=== PATIENT | female | born 1960 ===

== ENCOUNTER 2017-03-10 12:16 | Observation (INO) | payer OTHER, SELFPAY ==
[2017-03-10 12:16] VITALS: BMI 25.7
--- NOTE | 2017-03-10 12:49 | ED PDOC ---
HPI: Chest Pain Time Seen by Provider: 03/10/17 12:47 Chief Complaint (Nursing): Chest Pain Chief Complaint (Provider): CHEST PAIN History Per: Patient (57 YO FEMALE HERE WITH LEFT SIDED CHEST PAIN X 1 WEEK CONTINUOUS DESCRIBED IF INSECT WAS CRAWLING IN THIS LOCATION. DENIES ANY PLEURITIC COMPONENT. DENIES ANY WORSENING WITH POSITION. NO RADIATION TO UPPER EXTREMITIES/FACE. ATTEMPTED USE OF NAPROXEN YESTERDAY WITHOUT RELIEF. DENIES ANY FAMILY H/O [place]/STROKE. DENIES ANY PERSONAL HISTORY OF CAD/HTN/DM/HLD. IS [employer] X 3 YEARS. SOCIAL SMOKER/DRINKER.) Past Medical History Reviewed: Historical Data, Nursing Documentation, Vital Signs Vital Signs: Last Vital Signs Temp 98.0 F 03/10/17 12:24 Pulse 69 03/10/17 12:50 Resp 20 03/10/17 12:24 BP 118/71 03/10/17 12:50 Pulse Ox 98 03/10/17 12:50 - Medical History PMH: Denies: HIV, Chronic Kidney Disease - Family History Family History: States: No Known Family Hx - Home Medications Home Medications: Ambulatory Orders Medication Instructions Recorded Naproxen 375 mg PO Q8 PRN #21 tab 09/03/15 diaZEpam [Valium] 5 mg PO Q6 PRN #14 tab 09/03/15 - Allergies Allergies/Adverse Reactions: Allergies Allergy/AdvReac Type Severity Reaction Status Date / Time No Known Allergies Allergy Verified 09/28/14 12:01 Review of Systems ROS Statement: Except As Marked, All Systems Reviewed And Found Negative Physical Exam - Reviewed Nursing Documentation Reviewed: Yes Vital Signs Reviewed: Yes - Physical Exam Appears: Positive for: Well, Non-toxic, No Acute Distress Head Exam: Positive for: ATRAUMATIC, NORMAL INSPECTION, NORMOCEPHALIC Skin: Positive for: Normal Color, Warm, DRY Eye Exam: Positive for: EOMI, Normal appearance, PERRL ENT: Positive for: Normal ENT Inspection Neck: Positive for: Normal, Painless ROM Cardiovascular/Chest: Positive for: Regular Rate, Rhythm. Negative for: Chest Non Tender (LEFT SIDE OF CHEST WALL MILD TENDERNESS NOTED.) Respiratory: Positive for: CNT, Normal Breath Sounds Gastrointestinal/Abdominal: Positive for: Normal Exam, Bowel Sounds, Soft Back: Positive for: Normal Inspection Extremity: Positive for: Normal ROM Neurologic/Psych: Positive for: Alert, Oriented - Laboratory Results Result Diagrams: 03/10/17 12:55 03/10/17 12:55 - ECG ECG Rhythm: Positive for: Sinus Rhythm (NSR 79 BPM; NO ECTOPY ;NO ACUTE CHANGES) O2 Sat by Pulse Oximetry: 98 - Progress ED Course And Treament: cxr: neg toradol 15 mg IM Re-evaluated. Patient noted persistent symptoms d/w Dr. Anne. Will admit obs for chest pain evaluation Disposition - Clinical Impression Clinical Impression: Chest pain - Patient ED Disposition Is Patient to be Admitted: Yes - Disposition Disposition Time: 14:38 Condition: FAIR Forms: [facility] (Turkish)
[2017-03-10 13:03] LABS: BASO % 0.7 % (0.0-2.0); EOS # 0.2 K/uL (0.0-0.7); EOS % 3.4 % (0.0-4.0); HEMATOCRIT 37.8 % (34.0-47.0); LYMPH # 2.6 K/uL (1.0-4.3); MEAN CELL VOLUME 91.5 fl (81.0-99.0); MEAN CORPUSCULAR HGB CONC 32.8 g/dL (33.0-37.0); MEAN PLATELET VOLUME 8.4 fl (7.2-11.7); MONO # 0.6 K/uL (0.0-0.8); MONO % 7.6 % (0.0-10.0); NEUT # 3.8 K/uL (1.8-7.0); NEUT % 52.3 % (50.0-75.0); NRBC % 0.1 % (0.0-0.0); RED CELL DISTRIBUTION WIDTH 13.4 % (11.5-14.5); WHITE BLOOD COUNT 7.3 K/uL (4.8-10.8)
[2017-03-10 13:16] LABS: BLOOD UREA NITROGEN 18 mg/dl (7-17); CALCIUM 9.4 mg/dL (8.4-10.2); CARBON DIOXIDE 23 mmol/L (22-30); CHLORIDE 111 mmol/L (98-107); GFR AFRICAN-AMERICAN > 60; GLUCOSE,RANDOM 101 mg/dL (65-105); POTASSIUM 3.8 MMOL/L (3.6-5.0); SODIUM 143 mmol/l (132-148)
[2017-03-10 13:50] LABS: MAGNESIUM 1.9 MG/DL (1.6-2.3)
[2017-03-10 15:18] VITALS: BP 118/76; PULSE 63; RESP 18; TEMP 98.3; O2SAT 99
--- NOTE | 2017-03-10 15:44 | CP.PCM.PCO ---
Assessment & Plan - Assessment and Plan (Free Text) Assessment: 57 yo female with no past medical history presented to ED for evaluation of chest pain. Patient states chest pain x 1 week, constant, left sided, 3/10 in severity with tingling sensation. Patient goes to gym and does cardio 2-3x/wk and does not wear a supportive bra. Patient has no history of HTN, HL, DM, obesity, positive family history (parent or sibling with CVD before age 65); atherosclerotic disease: prior TX, PCI/CABG, CVA/TIA, or peripheral arterial disease. Patient smokes 1 cigarette occasionally. EKG/Troponin/CXR completed in ED, unremarkable. Patient states she feels well at this time. No new or worsening symptoms that brought patient to ED. Vitals stable. PE remarkable for reproducible pain of left parasternal area, CV exam unremarkable RRR, no m/r/g. Patient seen and evaluated with attending at bedside. HEART SCORE calculated to be 2. Patient to be discharged home with NSAID therapy BID x 1 week and close follow up with clinic this week. ED precautions discussed including new/ worsening symptoms.
--- NOTE | 2017-03-10 17:52 | RAD ---
HISTORY: CP COMPARISON: No prior. FINDINGS: LUNGS: No definite acute infiltrate is identified. PLEURA: No significant pleural effusion identified, no pneumothorax apparent. CARDIOVASCULAR: Technical magnification is likely given frontal portable technique though mild cardiomegaly is not completely excluded. No pulmonary derangement. OSSEOUS STRUCTURES: No significant abnormalities. VISUALIZED UPPER ABDOMEN: Normal. OTHER FINDINGS: None. IMPRESSION: No acute infiltrate or pleural effusion identified. No pneumothorax. Technical cardiac magnification is favored over intrinsic cardiomegaly. Clinically correlate.
== END 2017-03-10 16:34 | disposition home or self-care (01) ==
LOC: H.ER 12:16 → H.ERHOLD 14:41
PROVIDERS: ADMIT Family Medicine Geriatric Medicine; ATTEND Family Medicine Geriatric Medicine
DX: R07.9 Chest pain, unspecified (principal); F17.210 Nicotine dependence, cigarettes, uncomplicated; Z82.49 Family history of ischemic heart disease and other diseases of the circulatory system
CPT/HCPCS: 71010; 80048; 83735; 84484; 85025; 85378; 96372; 99284; G0378; J1885

== ENCOUNTER 2018-05-21 13:26 | Emergency (ER) | payer OTHER ==
[2018-05-21 13:26] VITALS: BMI 25.7
[2018-05-21 13:51] VITALS: RESP 18; TEMP 98.8; O2SAT 99
[2018-05-21 14:39] VITALS: BP 128/73; PULSE 85
--- NOTE | 2018-05-21 14:39 | ED PDOC ---
HPI: Chest Pain History Per: Patient Additional Complaint(s): Patient seen and examined at bedside with attending. 58F no PMH/PSH p/w intermittent palpitations associated with feelings of anxiety shortly after. Palpitations started Friday and have continued daily since then approximately 3x/day and last for "maybe a minute". She denies any associated dizziness/headache, SOB, nausea, diaphoresis and feels the "pulsing in the center of her chest". She endorses drinking 10 cups of coffee/day, drinks alcohol 3-4x/week with her last drink being a glass of wine on Friday. She has never experienced these symptoms before and went through menopause 2 years ago. She denies any symptoms of temperature intolerance, diarrhea/constipation. PMH: None PSH: None FHx: Denies cardiac hx ALL: NKDA Alcohol: 3-4x/week Smoking: Occasionally 1-2 cigarettes Drugs: denies <Magi Preciado - Last Filed: 05/21/18 16:23> <Nan Sterling - Last Filed: 05/21/18 16:44> Time Seen by Provider: 05/21/18 14:20 Chief Complaint (Nursing): Palpitations Supervising Attending Note - Supervising Attending Note The Documented history was done by the: Physician Defense Attorney The documented physical exam was done by the: Physician Defense Attorney The documented procedures were done by the: Physician Defense Attorney - Attestation: I have personally seen and examined this patient.: Yes I have fully participated in the care of the patient.: Yes I have reviewed all pertinent clinical information: Yes - Notes: Notes:: Discussed case and reviewed chart. Spoke to pt with burn center nurse# [id number]. Pt with normal workup. Pt to followup with PMD in one week. Agree with resident workup and assessment. <Nan Sterling - Last Filed: 05/21/18 16:44> Past Medical History Vital Signs: Last Vital Signs Temp 37.1 C 05/21/18 13:49 Pulse 93 H 05/21/18 13:49 Resp 18 05/21/18 13:49 BP 120/75 05/21/18 13:49 Pulse Ox 99 05/21/18 13:49 - Medical History PMH: Denies: HIV, Chronic Kidney Disease - Family History Family History: States: No Known Family Hx <Magi Preciado Last Filed: 05/21/18 16:23> Vital Signs: Last Vital Signs Temp 98.8 F 05/21/18 13:49 Pulse 85 05/21/18 14:20 Resp 18 05/21/18 13:49 BP 128/73 05/21/18 14:20 Pulse Ox 99 05/21/18 16:24 <Nan Sterling - Last Filed: 05/21/18 16:44> - Home Medications Home Medications: Ambulatory Orders Medication Instructions Recorded Calcium Carbonate [Caltrate] 1 tab PO DAILY 03/10/17 - Allergies Allergies/Adverse Reactions: Allergies Allergy/AdvReac Type Severity Reaction Status Date / Time No Known Allergies Allergy Verified 05/21/18 13:49 Review of Systems ROS Statement: Except As Marked, All Systems Reviewed And Found Negative Cardiovascular: Positive for: Palpitations Psych: Positive for: Anxiety (with the palpitations) <Magi Preciado - Last Filed: 05/21/18 16:23> Physical Exam - Reviewed Vital Signs Reviewed: Yes - Physical Exam Appears: Positive for: Well, Non-toxic, No Acute Distress Head Exam: Positive for: ATRAUMATIC, NORMAL INSPECTION Skin: Positive for: Normal Color, Warm, Dry Eye Exam: Positive for: Normal appearance, EOMI Neck: Positive for: Supple Cardiovascular/Chest: Positive for: Regular Rate, Rhythm Respiratory: Positive for: Normal Breath Sounds. Negative for: Crackles, Rales, Rhonchi, Wheezing Gastrointestinal/Abdominal: Positive for: Bowel Sounds, Soft. Negative for: Tenderness Neurologic/Psych: Positive for: Alert, Oriented <MilanvestaMagi - Last Filed: 05/21/18 16:23> - Laboratory Results Result Diagrams: 05/21/18 14:50 05/21/18 14:50 - ECG O2 Sat by Pulse Oximetry: 99 - Radiology X-Ray: Read By Radiologist (CXR w/o active pulmonary disease.) <MilanvestaMagi - Last Filed: 05/21/18 16:23> - Laboratory Results Result Diagrams: 05/21/18 14:50 05/21/18 14:50 <Nan Sterling - Last Filed: 05/21/18 16:44> Medical Decision Making Medical Decision Making: Rule acute cardiac findings vs. thyroid vs. excessive caffeine ingestion - EKG - CXR PA/Lat - CBC, CMP, Troponin, TSH 1520 - CMP WNL (BUN-21) - Troponin Neg - TSH WNL - CBC WNL 1600 - d/c home with ER precautions - [facility] for referral for further cardio w/u - Counseled on decreasing caffeine intake <Magi Preciado - Last Filed: 05/21/18 16:23> Disposition - Disposition Disposition Time: 16:24 <Magi Preciado - Last Filed: 05/21/18 16:23> <Nan Sterling - Last Filed: 05/21/18 16:44> - Clinical Impression Clinical Impression: Intermittent palpitations - Disposition Condition: IMPROVED Additional Instructions: Follow up with primary medical doctor in one to two weeks for further follow up and assessment of palpitations. Return to the emergency department if symptoms worsen or if new symptoms develop. Instructions: Palpitations (DC) Forms: [facility] (Luxembourger), [facility] (East Timorese) Print Language: MALAY
[2018-05-21 15:13] LABS: ALB/GLOB RATIO 1.2 (1.0-2.1); ALBUMIN 4.2 g/dL (3.5-5.0); ALT/SGPT 32 U/L (9-52); AST/SGOT 33 U/L (14-36); BLOOD UREA NITROGEN 21 mg/dl (7-17); CALCIUM 9.7 mg/dL (8.4-10.2); GFR NON-AFRICAN AMERICAN > 60
--- NOTE | 2018-05-21 15:28 | RAD ---
HISTORY: Palpitations COMPARISON: 03/10/2017 TECHNIQUE: Chest PA and lateral FINDINGS: LINES AND TUBES: None. LUNG AND PLEURA: The lungs are well inflated and clear. No pleural effusion or pneumothorax. HEART AND MEDIASTINUM: The heart is not enlarged. No aortic atherosclerotic calcification present. The hilar and mediastinal contours are within normal limits. SKELETAL STRUCTURES: The bony structures are within normal limits for the patient's age. VISUALIZED UPPER ABDOMEN: Normal. OTHER FINDINGS: None. IMPRESSION: No active pulmonary disease.
[2018-05-21 15:47] LABS: HEMOGLOBIN 12.8 g/dL (12.0-16.0); MEAN CELL VOLUME 93.1 fl (81.0-99.0); MEAN CORPUSCULAR HEMOGLOBIN 30.2 pg (27.0-31.0); MEAN CORPUSCULAR HGB CONC 32.5 g/dL (33.0-37.0); RBC 4.24 Mil/uL (3.80-5.20); RED CELL DISTRIBUTION WIDTH 13.2 % (11.5-14.5); WHITE BLOOD COUNT 8.9 K/uL (4.8-10.8)
== END 2018-05-21 16:40 | disposition home or self-care (01) ==
LOC: H.ER 13:26
DX: R00.2 Palpitations (principal); F41.9 Anxiety disorder, unspecified

== ENCOUNTER 2018-09-21 10:00 | Emergency (ER) | payer OTHER ==
[2018-09-21 10:00] VITALS: BMI 25.7
[2018-09-21 10:11] VITALS: O2SAT 98
--- NOTE | 2018-09-21 10:37 | ED PDOC ---
Lower Extremity Pain/Injury Time Seen by Provider: 09/21/18 10:04 Chief Complaint (Nursing): Lower Extremity Problem/Injury Chief Complaint (Provider): Lower Extremity Problem/Injury History Per: Patient History/Exam Limitations: no limitations Onset/Duration Of Symptoms: Days (x10) Current Symptoms Are (Timing): Still Present Additional Complaint(s): 58 year old female presents to the emergency department with a complaint of left knee radiating to posterior thigh pain status post slip and fall with extension of the knee 10 days ago. Patient has been able to ambulate on the left lower extremity with pain with bruising to affected area. He denies chest pain or shortness of breath. PCP: none provided Past Medical History Reviewed: Historical Data, Nursing Documentation, Vital Signs Vital Signs: Last Vital Signs Temp 98.2 F 09/21/18 10:10 Pulse 87 09/21/18 10:10 Resp 17 09/21/18 10:10 BP 139/81 09/21/18 10:10 Pulse Ox 98 09/21/18 10:10 - Medical History PMH: Denies: HIV, Chronic Kidney Disease - Family History Family History: States: Unknown Family Hx - Home Medications Home Medications: Ambulatory Orders Medication Instructions Recorded Calcium Carbonate [Caltrate] 1 tab PO DAILY 03/10/17 Naproxen [Naprosyn] 500 mg PO Q12H #20 tab 09/21/18 - Allergies Allergies/Adverse Reactions: Allergies Allergy/AdvReac Type Severity Reaction Status Date / Time No Known Allergies Allergy Verified 05/21/18 13:49 Review of Systems ROS Statement: Except As Marked, All Systems Reviewed And Found Negative Musculoskeletal: Positive for: Leg Pain (left knee to posterior thigh), Other (ecchymosis left lateral and medial aspect of posterior thigh) Physical Exam - Reviewed Nursing Documentation Reviewed: Yes Vital Signs Reviewed: Yes - Physical Exam Appears: Positive for: No Acute Distress Extremity: Positive for: Other (medial and lateral aspect of left knee with ecchymosis extending to medial and lateral posterior thigh). Negative for: Calf Tenderness (left-sided) Neurologic/Psych: Negative for: Motor/Sensory Deficits (left knee) - ECG O2 Sat by Pulse Oximetry: 98 (RA) Pulse Ox Interpretation: Normal Medical Decision Making Medical Decision Making: Time: 1025 Initial Plan: 58 year old female with injury, most likely, representing tendon or meniscus injury. Unlikely DVT. Will order XR left knee then consider MRI. Time: 1046 --MRI left knee for further evaluation of ligamentos injury noted on preliminary XR. Time: 1321 --MRI left knee Findings: Mild increased signal seen within the anterior cruciate ligament suggestive for a low grade sprain with some interstitial delamination. Posterior cruciate ligament is preserved. Prominent globular increased signal seen within the posterior horn of the medial meniscus extending towards the inferior articular surface suggestive for grade 2 intrasubstance degeneration and or intrasubstance partial tearing. Linear grade 1 intrasubstance degeneration in the anterior root of the anterior horn of the lateral meniscus. Medial collateral ligament is preserved. Lateral collateral ligament complex structures are preserved. Mild distal quadriceps tendinopathy. Patellar tendon is preserved. Patellar cartilage is preserved. Mild cartilage thinning involving the medial compartment of the femorotibial joint space. Mild cartilage thinning overlying the anterior aspect of the lateral femoral condyle. No significant suprapatellar joint effusion. Mild reticulation edema within the posterior lateral soft tissues. Horizontally oriented curvilinear decreased T1 signal and increased STIR signal seen in the posterior lateral proximal tibia best seen on series 3 and 4, image 18 suggestive for a prominent traversing vessel versus less likely subchondral osseous injury and or stress injury. Clinical correlation. Interval follow-up study may be helpful if clinically indicated. Impression: 1. Prominent globular increased signal seen within the posterior horn of the medial meniscus extending towards the inferior articular surface suggestive for grade 2 intrasubstance degeneration and or intrasubstance partial tearing. Clinical correlation. 2. Horizontally oriented curvilinear decreased T1 signal and increased STIR signal seen in the posterior lateral proximal tibia best seen on series 3 and 4, image 18 suggestive for a prominent traversing vessel versus less likely subchondral osseous injury and or stress injury. Clinical correlation. Interval follow-up study may be helpful if clinically indicated. 3. Mild increased signal seen within the anterior cruciate ligament suggestive for a low grade sprain with some interstitial delamination. 4. Linear grade 1 intrasubstance degeneration in the anterior root of the anterior horn of the lateral meniscus. 5. Mild distal quadriceps tendinopathy. 6. Mild cartilage thinning involving the medial compartment of the femorotibial joint space. Mild cartilage thinning overlying the anterior aspect of the lateral femoral condyle. 7. Mild reticulation edema within the posterior lateral soft tissues. Scribe Attestation: Documented by Ingrid Hernandez, acting as a scribe for Jamarcus Caal MD. Provider Scribe Attestation: All medical record entries made by the Scribe were at my direction and personally dictated by me. I have reviewed the chart and agree that the record accurately reflects my personal performance of the history, physical exam, medical decision making, and the department course for this patient. I have also personally directed, reviewed, and agree with the discharge instructions and disposition. Disposition - Clinical Impression Clinical Impression: Acute meniscal tear of knee, PCL sprain - Patient ED Disposition Is Patient to be Admitted: No Counseled Patient/Family Regarding: Studies Performed, Diagnosis, Need For Followup, Rx Given - Disposition Referrals: Reid Chairez III, MD [Staff Provider] - Disposition: Routine/Home Disposition Time: 13:33 Condition: FAIR Prescriptions: Naproxen [Naprosyn] 500 mg PO Q12H #20 tab Instructions: Meniscal Tear, Knee Immobilizer (DC), Knee Sprain (DC), Ligament Injuries in the Knee Forms: [facility] (Occitan) Print Language: ALBANIAN
--- NOTE | 2018-09-21 13:25 | MRI ---
MRI left knee HISTORY: Pain. Injury. Comparison: None available. Technique: Multi-echo multiplanar sequences were performed through the left knee without the use of intravenous contrast. Findings: Mild increased signal seen within the anterior cruciate ligament suggestive for a low grade sprain with some interstitial delamination. Posterior cruciate ligament is preserved. Prominent globular increased signal seen within the posterior horn of the medial meniscus extending towards the inferior articular surface suggestive for grade 2 intrasubstance degeneration and or intrasubstance partial tearing. Linear grade 1 intrasubstance degeneration in the anterior root of the anterior horn of the lateral meniscus. Medial collateral ligament is preserved. Lateral collateral ligament complex structures are preserved. Mild distal quadriceps tendinopathy. Patellar tendon is preserved. Patellar cartilage is preserved. Mild cartilage thinning involving the medial compartment of the femorotibial joint space. Mild cartilage thinning overlying the anterior aspect of the lateral femoral condyle. No significant suprapatellar joint effusion. Mild reticulation edema within the posterior lateral soft tissues. Horizontally oriented curvilinear decreased T1 signal and increased STIR signal seen in the posterior lateral proximal tibia best seen on series 3 and 4, image 18 suggestive for a prominent traversing vessel versus less likely subchondral osseous injury and or stress injury. Clinical correlation. Interval follow-up study may be helpful if clinically indicated. Impression: 1. Prominent globular increased signal seen within the posterior horn of the medial meniscus extending towards the inferior articular surface suggestive for grade 2 intrasubstance degeneration and or intrasubstance partial tearing. Clinical correlation. 2. Horizontally oriented curvilinear decreased T1 signal and increased STIR signal seen in the posterior lateral proximal tibia best seen on series 3 and 4, image 18 suggestive for a prominent traversing vessel versus less likely subchondral osseous injury and or stress injury. Clinical correlation. Interval follow-up study may be helpful if clinically indicated. 3. Mild increased signal seen within the anterior cruciate ligament suggestive for a low grade sprain with some interstitial delamination. 4. Linear grade 1 intrasubstance degeneration in the anterior root of the anterior horn of the lateral meniscus. 5. Mild distal quadriceps tendinopathy. 6. Mild cartilage thinning involving the medial compartment of the femorotibial joint space. Mild cartilage thinning overlying the anterior aspect of the lateral femoral condyle. 7. Mild reticulation edema within the posterior lateral soft tissues.
[2018-09-21 14:06] VITALS: BP 130/80; PULSE 78; RESP 19; TEMP 97.6
--- NOTE | 2018-09-21 16:15 | RAD ---
Date of service: 09/21/2018 PROCEDURE: Left Knee Radiographs. HISTORY: Posttraumatic pain. COMPARISON: 12/20/2012 FINDINGS: BONES: Normal. No fracture. JOINTS: Normal. No osteoarthritis. JOINT EFFUSION: None. OTHER FINDINGS: None. IMPRESSION: No acute findings related to/ accounting for the clinical presentation. No significant interval change compared to the prior examination(s).
== END 2018-09-21 14:17 | disposition home or self-care (01) ==
LOC: H.ER 10:00
DX: S83.92XA Sprain of unspecified site of left knee, initial encounter (principal); W19.XXXA Unspecified fall, initial encounter; Y92.89 Other specified places as the place of occurrence of the external cause